=== PATIENT | female | born 1995 | race Caucasian/White ===

== ENCOUNTER 2024-05-19 02:32 | Emergency (ER) | payer SELFPAY ==
[2024-05-19] VITALS (7 sets, daily range): BP systolic 109–142; BP diastolic 60–106; BMI 20.7
--- NOTE | 2024-05-19 04:18 | ED.GENMED ---
History of Present Illness
General
Chief Complaint: Crisis Evaluation
Source: patient
Exam Limitations: none
Time Seen by Provider: 05/19/24 04:18
Nursing documentation reviewed up to this point in time: agreed with
History of Present Illness
History of Present Illness:
This a pleasant 29-year-old female presents the emergency department with anxiety and depression. She states that she thinks she has OCD. She is concerned because she has pimples on her chin and feels that she cannot leave the house because people
make fun of her. She recently moved home from [place] to live in her mom's house. She claims that this is a toxic environment. She does have a very supportive boyfriend of 7 years. Patient denies any medical problems. She is currently not
working which she attributes to not having a job because she just moved here. She denies tobacco or alcohol use. Denies any illicit drug use.
Review of Systems
Review of Systems
All Other Systems: Not applicable
Constitutional: Reports no symptoms
EENT: Reports no symptoms
Respiratory: Reports no symptoms
Cardiac: Reports no symptoms
ABD/GI: Reports no symptoms
: Reports no symptoms
Musculoskeletal: Reports no symptoms
Skin: Reports no symptoms
Neurological: Reports no symptoms
Endocrine: Reports no symptoms
Hematologic/Lymphatic: Reports no symptoms
Psychiatric: Reports depression and anxiety
Phy Exam
General Physical Exam
General Presentation: well appearing and no apparent distress
General Skin: warm and dry
General Habitus: normal
General Mental: alert
General Hydration: appears well hydrated
ENT Exam
ENT Exam: EOMI, pharynx normal, neck supple and normocephalic
Eye Exam
Eye Exam: PERRL, cornea clear and conjunctiva normal
Cardiovascular Exam
Cardiovascular Exam: regular rate/rhythm, no edema, no murmur and normal peripheral pulses
Pulmonary Exam
Pulmonary Exam: lungs clear, no respiratory distress, no rales, no crackles, no rhonchi, no stridor, no wheezing and no cough
Gastrointestinal Exam
Gastrointestinal Exam: normal bowel sounds, non tender, soft, no organomegaly, no pulsatile mass and non distended
Neurological Exam
Neurological Exam: alert, oriented x3, no motor deficits and speech normal
Musculoskeletal Exam
Musculoskeletal Exam: full ROM and no edema
Skin Exam
Skin Exam: normal color, warm/dry, no rash and no petechia
Psychiatric Exam
Psychiatric Exam: anxious, depressed and labile
Course
Orders/Labs/Results
Orders:
Orders
05/19/24 03:06
Crisis Consult Urgent
Reason for Consult: SI
05/19/24 04:30
observation [ED Special Safety Observation] ONCE
Observation level: Intermittent Observation
05/19/24 05:12
HCG, Urine Qualitative Screen Urgent
Date Specimen was Collected: 05/19/24
Time Specimen was Collected: 05:11
Comment: ADD ON
Urine Drug Abuse Screen Urgent
Date Specimen was Collected: 05/19/24
Time Specimen was Collected: 05:11
05/19/24 Breakfast
Regular
At Your Request: Full Participation
05/19/24 08:03
Add On- LAB Urgent
Comments:: hcg
Tests Added?: urine hcg
Vital Signs
Initial and Last Documented VS:
Initial Vital Signs
Temp Pulse Resp BP Pulse Ox
98.1 F 92 22 142/106 100
05/19/24 02:40 05/19/24 02:40 05/19/24 02:40 05/19/24 02:40 05/19/24 02:40
Last Documented Vital Signs
Temp Pulse Resp BP Pulse Ox
99.0 F 73 20 127/81 99
05/19/24 15:46 05/19/24 15:46 05/19/24 08:00 05/19/24 15:46 05/19/24 15:46
*Critical Care Note
Total Time (30-74mins, 75-104mins- exclusive of procedures): Not Applicable
ED Attending Note
-
Portions of this chart may have been created with voice recognition software.� Occasional wrong word or��sound alike� substitutions may have occurred due to the inherent limitations of voice recognition software.
Discharge Plan
Departure
Patient Disposition: Psych Facility
Date of Disposition: 05/19/24
Time of Disposition: 04:18
Patient Status:: 201
Condition: Good
Discharge Problem:
Depression, Anxiety
Instructions: Depression, Adult (DC), Anxiety, Adult (DC)
Referrals:
NONE,* [Family Provider] -
Interventions
Interventions:
*Risk Screen - Suicide Last Done: 05/19/24 02:40
*General Assessment Last Done: 05/19/24 02:40
*Neglect/Abuse Screening Last Done: 05/19/24 02:40
ED- Fall Risk Assessment Last Done: 05/19/24 15:46
*ED COVID-19 Vaccine History Last Done: 05/19/24 03:08
*Nursing Disposition Last Done: 05/19/24 15:46
ED-Psychological Assessment Last Done: 05/19/24 03:09
Discharge Date and Time
Discharge Date/Time: 05/19/24 15:52
Print Language: CROATIAN
[2024-05-19 05:30] LABS: Amphetamines Negative (Negative); Barbiturates Negative (Negative); Benzodiazepines Negative (Negative); Buprenorphine Negative (Negative); Cocaine Negative (Negative); Marijuana Negative (Negative); Methadone Negative (Negative); Methamphetamines Negative (Negative); Opiates Negative (Negative); Phencyclidine Negative (Negative); Tricyclic Antidepressants Negative (Negative)
[2024-05-19 08:34] LABS: HCG, Urine Qualitative Screen Negative
--- NOTE | 2024-05-20 12:30 | EDRN ---
Per Yolanda from [facility], pt was discharged from their suite to [facility] at 1550 on 05/19/24.
== END 2024-05-19 15:52 ==
LOC: EMR 02:32
PROVIDERS: EMERGENCY PHYSICIAN Student in an Organized Health Care Education/Training Program
DX: F32.A Depression, unspecified (principal); F41.9 Anxiety disorder, unspecified
CPT/HCPCS: 99285; 80306; 81025